=== PATIENT | male | born 1980 | race Two or more races ===

== ENCOUNTER 2017-03-24 20:23 | Emergency (ER) | payer MEDICAID ==
[~2017-03-24] VITALS: Ht 172.7 cm; Wt 77.1 kg
--- NOTE | 2017-03-24 20:50 | NUR ---
PT BIB FAMILY, PT C/O LAC ON 3RD FINGER ON RIGHT HAND S/P MOVING BOXES IN GARAGE. NAD NOTED. VSS. AMBULATORY. INITIAL WOUND CARE DONE.
[2017-03-24] MEDS ORDERED: TDAP [DIPH/PERTUSSIS/TET] 0.5 ML VIAL IM ONE ×2 (20:52→21:00)
[2017-03-24] MEDS ORDERED: LIDOCAINE /MPF 1% VIAL 5 ML VIAL ONE (20:52)
[2017-03-24] MEDS ORDERED: LIDOCAINE /MPF 1% VIAL 5 ML VIAL IJ ONE (21:00)
--- NOTE | 2017-03-24 21:00 | NUR ---
Waqar Jaramillo to suture lac.
--- NOTE | 2017-03-24 21:22 | NUR ---
Dressing intact, clean and dry. Patient discharged to home in stable condition. Written and verbal after care instructions given. Patient verbalizes understanding of instruction. Patient is ambulatory with steady gait, no further complaints.
[2017-03-24 21:24] VITALS: BP 130/87
== END 2017-03-24 21:24 | disposition home or self-care (01) ==
LOC: ER 20:31
DX: S61.212A Laceration without foreign body of right middle finger without damage to nail, initial encounter (principal); W45.8XXA Other foreign body or object entering through skin, initial encounter; Y93.89 Activity, other specified; Y92.89 Other specified places as the place of occurrence of the external cause; Y99.8 Other external cause status
CPT/HCPCS: 12001; 90471; 90715; 99283; A4606; A6403; J3490; Z7610

== ENCOUNTER 2017-04-01 19:24 | Emergency (ER) | payer MEDICAID ==
[~2017-04-01] VITALS: Ht 167.6 cm; Wt 89.4 kg
[2017-04-01 19:24] VITALS: BP 124/75
== END 2017-04-01 21:28 | disposition home or self-care (01) ==
LOC: ER 19:32
DX: S61.213D Laceration without foreign body of left middle finger without damage to nail, subsequent encounter (principal); X58.XXXD Exposure to other specified factors, subsequent encounter; Z48.02 Encounter for removal of sutures
CPT/HCPCS: 99281; A4606; Z7610; Z7502

== ENCOUNTER 2017-04-22 21:41 | Emergency (ER) | payer MEDICAID ==
[~2017-04-22] VITALS: Ht 167.6 cm; Wt 87.5 kg
--- NOTE | 2017-04-22 21:56 | NUR ---
PT BIB FRIEND FROM HOME, PT C/O LEFT KNEE PAIN WHEN STANDING X 1 DAY, NAD NOTED, VSS, RESP EVEN AND UNLABORED, WAITING FOR MD SUL[place].
--- NOTE | 2017-04-22 23:44 | NUR ---
REPORT GIVEN TO
--- NOTE | 2017-04-23 00:03 | NUR ---
Patient discharged to home in stable condition. Written and verbal after care instructions given. Patient verbalizes understanding of instruction. Patient able to demonstrate crutches successfully. Accompanied by family. No further complaints.
[2017-04-23 00:04] VITALS: BP 135/79
== END 2017-04-23 00:15 | disposition home or self-care (01) ==
LOC: ER 21:42
DX: M25.562 Pain in left knee (principal)
CPT/HCPCS: 73564-TC; 93971-TC; A4606; Z7610